=== PATIENT | male | born 1970 | race Caucasian/White ===

== ENCOUNTER → 2016-07-27 | Outpatient (CLI) | payer OTHER ==
[~2016-07-27] MED LIST: ALPR-411 PO; CARV25TA PO; CHOL2000 PO; FLEC100T21 PO; GARL10007 PO; GLIP10TA9 PO; GLUCTAB6 PO; LIRA18IN; LISI40TA PO; LPT40 PO; MAGNCAP3 PEG; RIVA1TAB4 PO
--- NOTE | 2016-07-29 07:09 | PAP/PSG TECHNICIAN REPORT ---
[facility] Dock Hand Polysomnogram Report Study name: None Report date: 07/29/2016 Study date: 07/27/2016 Referring Physician: CORTEZ BATEMAN D.O. Name: MAUREEN MAYNARD Interpreting Physician: Hal Pathak M.D. Date of : 1970 Dock Hand: Spring Polo RPS. Sex: Male Age: 45 StudyType: PSG PAP Weight: 359 lbs Height: 45 years, Height 5' 11" Neck Circum: BMI: 50.06 Medications: Atorvastatin, Carvedilol, Flecaindide, Glipizide, Lisinopril, Xarelto Patient History 45 yr. old male here for an updated titration sleep study. Patient is starting to feel more tired during the day on his current pressure. Patients equipment is old and cannot give AHI data. Patients Dafter sleepiness scale score is 8/24. Parameters Monitored NPSG: E1-M2, E2-M1, Fp1-M2, Fp2-M1, F3-M2, F4-M2, F4-M1, C3-M2, C4-M2, C4-M1, O1-M2, O2-M2, O2-M1, T3-M2, T4-M1, P3-M2, P4-M1, CHIN1, CHIN2, HR, EKG, Legs, PFLOW, SNOR, FLOW, CFLOW, Tidal Volume, THOR, ABDO, SpO2, PLTH, CPRESS, ETCO2 Wave, ETCO2, pH Sleep Architecture Sleep Stages Time at Lights Off 10:09:25 PM STAGES Time (min.) TST (%) Time at Lights On 4:57:25 AM Wake 79.5 -- Total Recording Time (TRT) 408.50 min. N1 38.5 12 Total Sleep Period (TSP) 346.0 min. N2 203.5 62 Total Sleep Time (TST) 328.5min. N3 22.5 7 Awake Time 80.0 min. REM 64.0 19 Wake after Sleep Onset 48.5 min. Sleep Efficiency (SE) 81 % Sleep Onset Latency (RUPERT) 31.0 min. Number of Stage 1 Shifts None Awakenings 10 Stage Changes 46 Number of REM periods 3 REM 64.0 19 REM Latency 136.5 min. NREM 264.5 81 Body Position Analysis Supine Right Left Side Prone Vertical Total Sleep Time (min.) 325.0 0.0 60.2 60.20 0.0 0.0 Total Sleep Time (%) 82% 0% 18% 18 0% N/A% Total Sleep Time REM (min.) 35.0 0.0 29.0 None 0.0 0.0 Total Sleep Time NREM (min.) 233.3 0.0 31.2 None 0.0 0.0 Intermittent Wake (min.) 56.7 19.0 3.8 None 0.0 0.0 Total Sleep Period (%) 81% None None None None None Arousals Myoclonus (PLM) * Events Count Index Events Count Index Spontaneous 4 1 Events Awake (PLMW) 0 0.0 Respiratory 2 0.4 Events Asleep w/ Arousal (PLMA) 10 1.8 PLM 10 2 Events Asleep w/o Arousal (PLMS) 29 5.3 Snoring 2 0 Total Asleep 39 7.1 Total 18 3 Total 39 6 Respiratory Analysis * CA OA MA CH H RERA Total Count 0 1 0 0 24 0 25 Index 0.0 0.2 0.0 0 4.4 0 4.6 Mean Duration 0.0 10.6 0.0 0.00 31.0 0.0 30.1 Longest Duration 0.0 10.6 0.0 0.00 0.0 0.0 46.5 Respiratory Event Summary Total Supine ~Supine Right Left Prone REM NREM Apneas Count 1 1 0 N/A 0 N/A 1 0 Index 0.2 0 0 N/A 0.0 N/A 1 0 Hypopneas (4% Desat) Count 24 23 1 N/A 1 N/A 3 21 Index 4.4 5.1 1 N/A 1.0 N/A 2.8 4.8 Apneas & All Hypopneas Count 25 24 1 N/A 1 N/A 4 21 Index 4.6 5 1 N/A 1 N/A 3.8 4.8 Respiratory Events (Psychiatry Instructor+All Hyp+RERA) Count 25 24 1 N/A 1 N/A 4 21 Index 4.6 5 1 N/A 1.0 N/A 3.8 4.8 Respiratory Related Arousal Count 2 24 0 N/A 0 N/A 0 2 Index 0.4 0 0 N/A 0 N/A 0 0 Snoring Analysis Supine Right Left Prone REM NREM Total Snore duration 14.2 min Snores count 665 N/A 8 N/A 55 618 673 Snore mean duration 1.3 Sec Snores index 149 N/A 8 N/A 51.6 140.2 122.9 TST with snoring (%) 4.3% Desaturation Event Summary: Minimum %SpO2 Event Count Mean/Min/Max Duration(sec.) Desaturation Index % Time In Bed > 90 26 24.0 / 5.8 / 58.0 5.6 71.0 86 - 90 21 21.7 / 11.8 / 39.5 11.1 28.9 81 - 85 0 N/A 0.0 0.2 76 - 80 0 N/A 0.0 0.0 71 - 75 0 N/A 0.0 0.0 66 - 70 0 N/A 0.0 0.0 61 - 65 0 N/A 0.0 0.0 56 - 60 0 N/A 0.0 0.0 51 - 55 0 N/A 0.0 0.0 < 50 0 N/A 0.0 0.0 Total REM NREM Awake <50% 0.0 min. 0.0 min. 0.0 min. 0.0 min. 51 - 60% 0.0 min. 0.0 min. 0.0 min. 0.0 min. 61 - 70% 0.0 min. 0.0 min. 0.0 min. 0.0 min. 71 - 80% 0.0 min. 0.0 min. 0.0 min. 0.0 min. 81 - 90% 113.7 min. 3.6 min. 105.9 min. 4.1 min. 91 - 100% 278.0 min. 60.3 min. 157.9 min. 59.8 min. Average 92 92 91 94 Minimum SpO2 82 89 84 82 Desaturation Event Index 4.6 3.8 6.1 0.0 # Desat. Events below 89% 24 N/A 24 N/A Time(%) with Saturation below 89% 3.3 0.0 3.1 0.2 Time(min.) with Saturation below 89% 12.8 0.0 12.0 0.8 Time (mins) REM (mins) NREM (mins) % of TST SpO2 Below 90% 27 2 N25 10.1 SpO2 Below 88% 9 0 0 1 Heart Rate Analysis Min (bpm) Max (bpm) Average (bpm) Awake 34 127 71 NREM 53 84 63 REM 59 79 66 Overall 53 84 64 Supplemental O2 Values Minimum O2 level: None Value Start Time End Time Dock Hand Comments Mr. Maynard slept in the right, left, and supine positions. No cardiac arrhythmia. PLMs noted. No bruxism noted. CPAP was initiated at +4 CMH2O, (but quickly increased to 7 for patient comfort) and up-titrated to an optimal level of + 12 CMH2O Cflex 1, which nearly eliminated all respiratory events and snoring. A reynoso FX nasal pillow, was used during titration. Mr. Maynard awoke to use the restroom once during the night. Mr. Maynard stated, it took me longer to get to sleep last night, but slept the same once I got to sleep. The final report will be interpreted and signed by a sleep physician. The completed physician report will then be placed in the patient medical record. Therapy Event: Therapy (cm H20) 4 7 8 9 10 11 12 Total Time at Pressure (min.) 14.7 51.8 33.1 103.1 36.5 88.3 80.5 TST at Pressure (min.) 0.0 30.0 30.1 101.6 36.5 85.3 45.0 # Periods 1 1 1 1 1 1 1 Sleep Onset (min.) N/A 16.3 0.0 0.0 0.0 0.0 0.0 REM Onset (min.) N/A N/A N/A 67.9 0.0 35.3 N/A Sleep Efficiency % 0 57 90 98 100 96 55 Wakefulness (%) 100.0 42.1 9.1 1.5 0.0 3.4 44.1 Wakefulness (min.) 14.7 21.8 3.0 1.5 0.0 3.0 35.5 NREM 1 (%) 0.0 42.5 18.1 1.5 1.4 2.3 8.1 NREM 1 (min.) 0.0 22.0 6.0 1.5 0.5 2.0 6.5 NREM 2 (%) 0.0 15.4 72.8 66.9 59.3 47.9 47.8 NREM 2 (min.) 0.0 8.0 24.1 68.9 21.7 42.3 38.5 NREM 3 (%) 0.0 0.0 0.0 0.0 28.8 13.6 0.0 NREM 3 (min.) 0.0 0.0 0.0 0.0 10.5 12.0 0.0 REM (%) 0.0 0.0 0.0 30.2 10.5 32.8 0.0 REM (min.) 0.0 0.0 0.0 31.2 3.8 29.0 0.0 # Arousals N/A 4 2 3 1 1 7 Arousal Index N/A 8.0 4.0 1.8 1.6 0.7 9.3 # Snore N/A 3 46 130 143 259 92 Snore Index N/A 6.0 91.7 76.8 235.1 182.1 122.7 AHI N/A 10.0 25.9 3.0 0.0 0.0 2.7 AHI Supine N/A 18.0 25.9 3.0 0.0 0.0 2.7 AHI Non-Supine N/A 3.6 N/A N/A N/A 0.0 N/A NREM AHI N/A 10.0 25.9 0.9 0.0 0.0 2.7 REM AHI N/A N/A N/A 7.7 0.0 0.0 N/A RDI N/A 10.0 25.9 3.0 0.0 0.0 2.7 # Obstructive N/A 0 0 1 0 0 0 # Central Ap N/A 0 0 0 0 0 0 # Mixed N/A 0 0 0 0 0 0 # Hypopneas N/A 5 13 4 0 0 2 RERAS N/A 0 0 0 0 0 0 Total Respiratory Events N/A 5 13 5 0 0 2 Time Below SpO2 89.00% (min.) 0.0 2.9 8.4 0.7 0.0 0.1 0.0 Mean NREM SpO2 (%) N/A 90 89 91 91 91 92 Mean REM SpO2 (%) N/A N/A N/A 92 92 93 N/A Mean Sleep SpO2 (%) N/A 90 89 91 91 92 92 Min NREM SpO2 (%) N/A 85 84 88 89 88 90 Min REM SpO2 (%) N/A N/A N/A 89 90 91 N/A Position Supine (min.) 0.0 13.3 30.1 101.6 36.5 41.8 45.0 Position Non-supine (min.) 0.0 16.7 0.0 0.0 0.0 43.5 0.0 LM Index Sleep N/A 14.0 12.0 8.9 0.0 0.7 13.3 LM Index NREM N/A 14.0 12.0 11.9 0.0 0.0 13.3 LM Index REM N/A N/A N/A 1.9 0.0 2.1 N/A Mean Heart Rate (bpm) N/A 64 63 64 63 64 61 Min Heart Rate (bpm) N/A 57 56 57 58 55 53
--- NOTE | 2016-07-30 07:08 | POLYSOMNOGRAPH REPORT ---
CLINICAL DATA: A 45-year-old male with BMI of 50.06, referred by Dr. Goodman, Danna Worrell and Dr. Guan for a CPAP titration study. SLEEP ARCHITECTURE: Total sleep period was 346.0 minutes. Total sleep time was 328.5 minutes, divided between 264.5 minutes of non-REM sleep and 64 minutes of REM sleep. Sleep onset latency was slightly delayed at 31 minutes. REM latency was 136.5 minutes. Sleep efficiency was 81%. Awake after sleep onset was 48.5 minutes. Sleep consisted of stage N1 12%, N2 62%, N3 7%, REM 19%. AROUSAL DATA: Eighteen arousals recorded for an index of 3 per hour. PLM DATA: 39 limb movements during sleep were noted for an index of 7.1 per hour with arousal index of 1.8 per hour. RESPIRATORY DATA: The AHI was 4.6. There was 1 obstructive apneic episode 10.6 seconds in duration. There were 24 hypopneic episodes. The mean duration of hypopnea was 31 seconds. OXIMETRY DATA: Mild nocturnal hypoxemia was seen prior to treatment. Oxygen dai was 84% during non-REM sleep. Mean saturation was 92%. Time below 88% was 9 minutes. EKG: Heart rates ranged from 53-84 beats per minute. No arrhythmias were noted. GREENS KEEPER'S COMMENTS AND TREATMENT SUMMARY: The patient slept in the right, left, and supine positions. The patient used a De La Fuente FX nasal pillow. He was titrated up to his final pressure setting of 12 cm of water pressure, C-Flex setting #1. At this final pressure setting, he slept for 45 minutes with an AHI of 3.7. IMPRESSION: Obstructive sleep apnea/hypopnea corrected with CPAP at 12 cm of water pressure, C-Flex setting #1 using De La Fuente FX nasal pillow. RECOMMENDATIONS: The patient's CPAP should be switched to the above noted pressure setting and he should be prescribed the above noted interface. Followup in 90 days to document efficacy and compliance is recommended. [facility]
== END | disposition home or self-care (01) ==
LOC: C.NEUR 21:00
PROVIDERS: ATTEND Internal Medicine Pulmonary Disease
DX: G47.33 Obstructive sleep apnea (adult) (pediatric) (principal); R51 Headache

== ENCOUNTER → 2016-08-16 | Outpatient (CLI) | payer OTHER ==
[~2016-08-16] VITALS: Ht 180.3 cm; Wt 163.9 kg
[2016-08-16 15:57] VITALS: BP 123/79; PULSE 81; Ht 180.3 cm; Wt 163.9 kg
== END | disposition home or self-care (01) ==
LOC: C.NEUR 14:47
PROVIDERS: ATTEND Internal Medicine Pulmonary Disease
DX: G47.33 Obstructive sleep apnea (adult) (pediatric) (principal)

== ENCOUNTER → 2016-09-09 | Outpatient (CLI) | payer OTHER ==
[2016-09-09 09:50] LABS: BASO % 0.3 %; BASO ABS # 0.02 K/uL (0-0.2); COMPLETE YES; EOS % 2.7 %; HEMATOCRIT 44.1 % (42-52); IG% 0.1 %; LYMPH % 31.4 %; LYMPH ABS # 2.37 K/uL (1.2-3.4); MEAN CELL VOLUME 87.2 fL (80-100); MEAN CORPUSCULAR HEMOGLOBIN 28.1 pg (25-34); MEAN CORPUSCULAR HGB CONC 32.2 g/dl (32-36); MEAN PLATELET VOLUME 10.2 fL (7.4-10.4); NEUT % 58.5 %; PLATELET COUNT 209 K/uL (130-400); RED BLOOD COUNT 5.06 M/uL (4.7-6.1); WHITE BLOOD COUNT 7.54 K/uL (4.8-10.8)
[2016-09-09 09:57] LABS: ALT/SGPT 24 U/L (12-78); BLOOD UREA NITROGEN 15 mg/dl (7-18); BUN/CREATININE RATIO 18.3 (10-20); CALCIUM 8.6 mg/dl (8.5-10.1); CARBON DIOXIDE 26 mmol/L (21-32); CHLORIDE 104 mmol/L (98-107); CREATININE 0.83 mg/dl (0.60-1.40); GLUCOSE 142 mg/dl (70-99); POTASSIUM 4.3 mmol/L (3.5-5.1); SODIUM 139 mmol/L (136-145); URIC ACID 6.8 mg/dl (2.6-7.2)
[2016-09-09 10:00] LABS: ALB/GLOB RATIO 1.1 (0.9-2); ALKALINE PHOSPHATASE 81 U/L (45-117); AST/SGOT 15 U/L (15-37)
[2016-09-09 10:38] LABS: RATIO 9.4 mcg/mg (0-30.0)
[2016-09-09 11:09] LABS: ESTIMATED AVERAGE GLUCOSE 137 mg/dl; HA1C FLAG Normal (Normal)
== END | disposition home or self-care (01) ==
LOC: C.LAB1850 07:26
PROVIDERS: ATTEND Internal Medicine
DX: R19.7 Diarrhea, unspecified (principal); E11.9 Type 2 diabetes mellitus without complications; Z87.39 Personal history of other diseases of the musculoskeletal system and connective tissue

== ENCOUNTER 2017-03-13 10:56 | Observation (INO) | payer OTHER ==
[2017-03-13] VITALS (14 sets, daily range): BP systolic 93–159; BP diastolic 65–100; PULSE 83–107; TEMP 36.4–36.9; O2SAT 96–98; Ht 180.3 cm; Wt 161.5 kg
[~2017-03-13] VITALS: Ht 180.3 cm; Wt 161.5 kg
--- NOTE | 2017-03-13 11:57 | History & Physical Bridge Note ---
H&P Re-Evaluation Bridge Note: I have examined the patient, reviewed the History & Physical and in the interval since the performance of the History & Physical I have noted the following changes of clinical significance: No Xarelto yesterday. In atrial flutter currently. No other changes noted
--- NOTE | 2017-03-13 11:58 | Procedure Note ---
Pre-Mod Sedation Assessment General Date of Moderate Sedation: Mar 13, 2017. Vital Signs: Vital Signs Past 12 Hours Date Time Temp Pulse Resp B/P (MAP) Pulse Ox O2 Delivery O2 Flow Rate FiO2 03/13/17 11:25 36.4 16 132/100 97 Room Air Review Cardiovascular: + irregularly irregular Pre-Sedation Airway Assessment Oral Cavity: WNL Able to Visualize Vocal Cords: No Short Thick Neck: Yes Hx of Sleep Apnea: Yes Smoking Status: Never Smoker Mallampati Classification: Class III ASA Classification: Class III Procedure Planning Contraindications-for Mod Sed: None Yes Notes The planned sedation has been discussed with the patient and consent obtained. I have identified the patient, determined the appropriateness of sedation and have assessed the patient immediately prior to the procedure. All medicine(s) and interventions are by my order.
[2017-03-13] MEDS ORDERED: FENTANYL CITRATE INJ 50 MCG/1 ML 2 ML VIAL ONE ×3 (12:03→12:57)
[2017-03-13] MEDS ORDERED: MIDAZOLAM HCL 5 MG/ML 1 ML VIAL ONE ×3 (12:03→13:11)
[2017-03-13] MEDS ORDERED: ISOPROTERENOL 200 MCG / 50ML D5W IV ONE (13:23)
[2017-03-13] MEDS ORDERED: ACETAMINOPHEN 325 MG TAB PO PRN (14:00)
[2017-03-13] MEDS ORDERED: IV FLUIDS COMPLETED PRN (14:00)
[2017-03-13] MEDS ORDERED: OXYCODONE/ACETAMINOPHEN 5-325 TAB PO PRN (14:00)
[2017-03-13] MEDS ORDERED: NON-FORMULARY MEDICATION SC SCH (18:45)
--- NOTE | 2017-03-13 19:01 | Procedure Note ---
Procedure Note Date of Service Mar 13, 2017. Procedure Note Procedure performed: Ablation of supraventricular tachycardia, complete electrophysiologic testing including pacing from the left atrium via the coronary sinus, 3 dimensional electro anatomical mapping, arrhythmia induction on and off isoproterenol using programmed stimulation and burst atrial pacing, Staff shaft sinker: Indication: The patient is a 46-year-old gentleman with a history of recurrent atrial flutter. Based on the recurrent nature of his arrhythmia and the associated symptoms he was advised to consider catheter based therapy today. Procedure detail: The patient was informed of the risks benefits and alternatives to the intended procedure, he understood such in which proceed. He was taken to the electrophysiology suite in a fasting state. Conscious sedation was administered per protocol and the patient was monitored electrocardiographically throughout today's procedure. The right femoral area was prepped and draped in usual sterile fashion, this area was anesthetized using subcutaneous administration of a lidocaine solution. The right femoral vein was subsequently accessed 3 times using modified Selinger technique and sheaths were placed over guidewires at this site. The sheaths were used to facilitate passage of the electrophysiologic catheters to the respective chambers under fluoroscopic guidance. This included right ventricular, coronary sinus and roving ablation catheter. Electro anatomical mapping was then performed. The patient's baseline tachycardia was characterized. Once the elements of the tachycardia were known, the radiofrequency ablation catheter was used to terminate the tachycardia. Lesions were placed in a linear fashion through the caval tricuspid isthmus with good power and temperature. Subsequent to ablation the patient was placed on isoproterenol in the baseline electrical and conduction system were characterize. Attempts at arrhythmia induction were performed using burst atrial pacing from both the medial and lateral portions of the caval tricuspid isthmus as well as program stimulation. At the conclusion of the case the isoproterenol infusion was discontinued. Sheaths and catheters were removed. Hemostasis was achieved at the access site using manual pressure. The patient tolerated procedure well there were no immediate complications. Findings: Baseline tachycardia cycle length was 270 milliseconds. Three-dimensional electro anatomical mapping revealed this to be an isthmus dependent right atrial flutter. The ablation: An 8 mm radiofrequency ablation catheter was advanced to the area of the caval tricuspid isthmus. Lesions were placed in a linear fashion with good power and temperature which resulted in termination of the tachycardia. Post ablation intervals: Cycle length in the atrium 652 milliseconds Cycle length in the ventricle 656 milliseconds NH interval 178 milliseconds QRS duration 110 milliseconds QT interval 328 milliseconds Corrected QT interval 405 milliseconds AH interval 134 milliseconds HB interval 60 milliseconds [address] Wenckebach occurred at 380 milliseconds Retrograde conduction was poor and was dissociation with ventricular pacing Program stimulation from the atrium revealed the AV node effective refractory. To be 290 milliseconds. There was no evidence of dual AV jesica physiology. Arrhythmia induction: Subsequent to ablation the patient underwent program stimulation as well as burst atrial pacing from both the medial and lateral portions of the caval tricuspid isthmus. This was performed on isoproterenol down to cycle length of 240 milliseconds. No tachycardia was inducible. Impression: Successful creation of bidirectional block through the caval tricuspid isthmus rendering typical right atrial flutter noninducible Normal baseline conduction intervals subsequent to ablation No evidence of dual AV jesica physiology No evidence of accessory pathway conduction
[2017-03-13 19:42] LABS: HEMATOCRIT 42.6 % (42-52); MEAN CELL VOLUME 88.8 fL (80-100); MEAN CORPUSCULAR HEMOGLOBIN 29.6 pg (25-34); MEAN PLATELET VOLUME 9.8 fL (7.4-10.4); PLATELET COUNT 203 K/uL (130-400); WHITE BLOOD COUNT 9.78 K/uL (4.8-10.8)
[2017-03-13 19:46] LABS: MEAN CORPUSCULAR HGB CONC 33.3 g/dl (32-36)
[2017-03-13 20:03] LABS: CREATININE 1.1 mg/dl (0.60-1.40)
[2017-03-13] MEDS ORDERED: RIVAROXABAN 20 MG TAB PO SCH (21:00)
[2017-03-13] MEDS ORDERED: CARVEDILOL 25 MG TAB PO SCH (21:00)
[2017-03-13] MEDS ORDERED: ATORVASTATIN 40 MG TAB PO SCH (21:00)
[2017-03-14 03:11] VITALS: BP 111/73; PULSE 92; TEMP 36.9; O2SAT 96
[2017-03-14 07:58] VITALS: BP 130/86; PULSE 99; TEMP 36.8; O2SAT 96
--- NOTE | 2017-03-14 08:39 | Discharge Instructions ---
Discharge Instructions Date of Service Mar 14, 2017. Admission Reason for Admission: Atrial Flutter Discharge Discharge Diagnosis / Problem: Atrial flutter Discharge Goals Goal(s): Improve function Activity Recommendations Activity Limitations: as noted below Lifting Limitations: no more than 10 pounds Shower/Bathe: no limitations Driving or Machine Use: no limitations No lifting >10# or straining for 7 days . Current Hospital Diet Patient's current hospital diet: Diabetes Type 2 Diet Discharge Diet Recommended Diet: Low Sodium Diet (2gm Na) Pending Studies Studies pending at discharge: no Laboratory Results Hemoglobin A1c Test 02/21/17 07:06 Range/Units Estimated Average Glucose 131 mg/dl Hemoglobin A1c 6.2 H 4.5-5.6 % Lipid Panel Test 02/21/17 07:06 Range/Units Triglycerides Level 295 H 0-150 mg/dl Cholesterol Level 156 0-200 mg/dl HDL Cholesterol 34 mg/dl Cholesterol/HDL Ratio 4.6 LDL Cholesterol, Calculated 63 mg/dl Medical Emergencies . Who to Call and When: Medical Emergencies: If at any time you feel your situation is an emergency, please call 911 immediately. . Non-Emergent Contact Non-Emergency issues call your: [facility] . . "Provider Documentation" section prepared by Jhonny Barrera. . VTE Core Measure Inpt VTE Proph given/why not?: Treatment not indicated
[2017-03-14] MEDS ORDERED: LISINOPRIL 40 MG TAB PO SCH (09:00)
[2017-03-14 09:06] VITALS: BP 130/86; PULSE 99; TEMP 36.8; O2SAT 96
--- NOTE | 2017-03-19 09:43 | Discharge Summary ---
Discharge Summary Admission Date: Mar 13, 2017 at 13:50 Discharge Date: Mar 14, 2017 Discharge Disposition: Home Primary Diagnosis: Atrial flutter Procedures: Ablation of atrial flutter Discharge Instructions Last Recorded Wt (Kilograms): 161.500 Activity Recommendations: lifting limitation Return to School/Work: no limitations Diet At Discharge: resume previous diet Allergies: Coded Allergies: Penicillins (Verified Allergy, Intermediate, Rash, 03/13/17) Discharge Medications: Continue admission medications including Xarelto. Patient can discontinue flecainide I Home Health Services: none Special Care: Call your doctor if: * Temperature above 101 degrees * Pain not relieved by pain medicine ordered * There is increased drainage or redness from any incision * You have any unanswered questions or concerns. Avoid all tobacco products. If you need help to stop smoking, call [place]'s FREE QUITLINE at . This is a free call. Admission HPI Patient is a 46-year-old gentleman with a history of atrial flutter. The rhythm has been recurrent in nature and despite medical therapy he continues to have some symptoms. Patient was therefore advised to undergo catheter based therapy and possible ablation Admission Physical Exam Additional Comments: Access site is without hematoma. No bruit on auscultation. No bleeding. Hospital Course On the day of admission the patient underwent electrophysiologic testing and ablation of typical isthmus dependent right atrial flutter. There were no complications associated with procedure. Patient stayed overnight by choice in the following morning was discharged home in good condition. There were no recurrent arrhythmias. EKG prior to discharge was normal. Total time spent on discharge = This includes examination of the patient, discharge planning, medication reconciliation, and communication with other providers.
== END 2017-03-14 09:50 | disposition home or self-care (01) ==
LOC: C.EP 10:56 → C.2T 13:50 → ENRESERV 13:52
PROVIDERS: ADMIT Internal Medicine Clinical Cardiac Electrophysiology; ATTEND Internal Medicine Clinical Cardiac Electrophysiology
DX: I47.1 Supraventricular tachycardia (principal); I48.92 Unspecified atrial flutter; E78.5 Hyperlipidemia, unspecified; E66.01 Morbid (severe) obesity due to excess calories; E11.9 Type 2 diabetes mellitus without complications; G62.9 Polyneuropathy, unspecified; I10 Essential (primary) hypertension; Z79.01 Long term (current) use of anticoagulants; Z86.010 Personal history of colon polyps; Z80.0 Family history of malignant neoplasm of digestive organs; Z82.49 Family history of ischemic heart disease and other diseases of the circulatory system

== ENCOUNTER → 2017-06-19 | Outpatient (CLI) | payer OTHER ==
[~2017-06-19] MED LIST changes: -FLEC100T21 PO
[2017-06-19 10:08] LABS: ESTIMATED AVERAGE GLUCOSE 114 mg/dl; HA1C FLAG Normal (Normal)
== END | disposition home or self-care (01) ==
LOC: C.LAB1850 07:12
PROVIDERS: ATTEND Internal Medicine
DX: Z87.39 Personal history of other diseases of the musculoskeletal system and connective tissue (principal); E11.9 Type 2 diabetes mellitus without complications; E55.9 Vitamin D deficiency, unspecified

== ENCOUNTER → 2017-07-25 | Outpatient (CLI) | payer OTHER ==
[2017-07-25 10:27] LABS: ALBUMIN 3.9 gm/dl (3.4-5.0); ALKALINE PHOSPHATASE 78 U/L (45-117); ALT/SGPT 24 U/L (12-78); AST/SGOT 19 U/L (15-37); BLOOD UREA NITROGEN 14 mg/dl (7-18); CALCIUM 8.7 mg/dl (8.5-10.1); CARBON DIOXIDE 30 mmol/L (21-32); CHOLESTEROL 92 mg/dl (0-200); CREATININE 1.02 mg/dl (0.60-1.40); GLUCOSE 106 mg/dl (70-99); LDL CHOLESTEROL CALCULATED 35 mg/dl; POTASSIUM 3.7 mmol/L (3.5-5.1); SODIUM 136 mmol/L (136-145); TOTAL PROTEIN 7.4 gm/dl (6.4-8.2); URIC ACID 6.4 mg/dl (2.6-7.2)
== END | disposition home or self-care (01) ==
LOC: C.LAB1850 07:07
PROVIDERS: ATTEND Physician Assistant
DX: E79.0 Hyperuricemia without signs of inflammatory arthritis and tophaceous disease (principal); E78.5 Hyperlipidemia, unspecified

== ENCOUNTER → 2017-08-15 | Outpatient (CLI) | payer OTHER ==
[~2017-08-15] VITALS: Ht 180.3 cm; Wt 140.0 kg
[2017-08-15 15:58] VITALS: BP 119/82; PULSE 76; Ht 180.3 cm; Wt 140.0 kg
== END | disposition home or self-care (01) ==
LOC: C.NEUR 14:55
PROVIDERS: ATTEND Internal Medicine Pulmonary Disease
DX: G47.33 Obstructive sleep apnea (adult) (pediatric) (principal); E66.01 Morbid (severe) obesity due to excess calories; I48.92 Unspecified atrial flutter; F41.9 Anxiety disorder, unspecified; E11.9 Type 2 diabetes mellitus without complications; M10.9 Gout, unspecified; E78.5 Hyperlipidemia, unspecified; I10 Essential (primary) hypertension; Z86.19 Personal history of other infectious and parasitic diseases; Z68.42 Body mass index [BMI] 45.0-49.9, adult; Z81.1 Family history of alcohol abuse and dependence; Z83.42 Family history of familial hypercholesterolemia; Z82.49 Family history of ischemic heart disease and other diseases of the circulatory system; Z80.0 Family history of malignant neoplasm of digestive organs; Z79.84 Long term (current) use of oral hypoglycemic drugs; Z88.0 Allergy status to penicillin; Z88.8 Allergy status to other drugs, medicaments and biological substances

== ENCOUNTER → 2017-11-17 | Outpatient (CLI) | payer OTHER ==
[2017-11-17 10:02] LABS: CALCIUM 8.9 mg/dl (8.5-10.1); CARBON DIOXIDE 28 mmol/L (21-32); CREATININE 0.92 mg/dl (0.60-1.40); GLUCOSE,FASTING 115 mg/dl (70-99); POTASSIUM 4.2 mmol/L (3.5-5.1); SODIUM 135 mmol/L (136-145); URIC ACID 6.2 mg/dl (2.6-7.2)
== END | disposition home or self-care (01) ==
LOC: C.LAB1850 07:05
PROVIDERS: ATTEND Podiatrist
DX: M79.9 Soft tissue disorder, unspecified (principal); E11.51 Type 2 diabetes mellitus with diabetic peripheral angiopathy without gangrene